=== PATIENT | female | born 1970 | race Two or more races ===

== ENCOUNTER 2017-02-05 16:43 | Emergency (ER) | payer SELFPAY ==
[~2017-02-05] VITALS: Ht 162.6 cm; Wt 75.0 kg
[2017-02-05] MEDS ORDERED: DIPHENHYDRAMINE 50MG/ML VIAL IV ONE (22:30)
[2017-02-05] MEDS ORDERED: METOCLOPRAMIDE HCL 10MG/2ML VIAL IV ONE (22:30)
[2017-02-05] MEDS ORDERED: SODIUM CHLORIDE 0.9% 1,000 ML IV ONE (22:30)
[2017-02-06] MEDS ORDERED: ACETAMINOPHEN WITH CODEINE 120-12MG/5ML UDC PO ONE (00:15)
[2017-02-06 04:48] VITALS: BP 121/73
== END 2017-02-06 04:51 | disposition home or self-care (01) ==
LOC: ER 22:11
DX: R51 Headache (principal)
CPT/HCPCS: 70450; 81025; 96361; 96374; 96375; 99285; J1200; J2765; J7030; Z7610